=== PATIENT | male | born 1965 | race Caucasian/White ===

== ENCOUNTER 2023-02-07 16:26 | Inpatient (IN) | payer MEDICAID ==
[~2023-02-07] VITALS: Ht 167.6 cm; Wt 76.2 kg
[2023-02-07] MEDS ORDERED: ACETAMINOPHEN 650 MG/SUPP.RECT RC ONE ×2 (16:58→17:00)
[2023-02-07] MEDS ORDERED: PIPERACILLIN /TAZOBACTAM 3.375 G in IV D5W 50 ML IV ONE (17:00)
[2023-02-07] MEDS ORDERED: IV LR 1000 ML 1,000 ML IV ONE ×2 (17:00)
[2023-02-07 17:18] LABS: BASOPHILS % (AUTO) 0.1 % (0.0-2.0); HEMATOCRIT 56 % (39-51); LYMPHOCYTES # (AUTO) 0.9 K/uL (0.8-4.8); LYMPHOCYTES % (AUTO) 5.8 % (20.0-44.0); MEAN CORPUSCULAR HEMOGLOBIN 32 PG (26.0-33.0); MEAN CORPUSCULAR HGB CONC 34 g/dl (31.0-36.0); MEAN CORPUSCULAR VOLUME 94 fL (80-96); NEUTROPHILS # (AUTO) 11.8 K/uL (1.8-8.9); NEUTROPHILS % (AUTO) 75.1 % (43.0-81.0); PLATELET COUNT (AUTO) 144 K/uL (150-450); RED BLOOD CELL COUNT(AUTO) 5.96 MIL/uL (4.5-6.0); RED CELL DISTRIBUTION WIDTH 13.7 % (11.5-15.0); WHITE BLOOD COUNT (AUTO) 15.7 K/uL (4.3-11.0)
[2023-02-07 17:37] LABS: CALCIUM, SERUM 8.9 mg/dL (8.5-10.1); CARBON DIOXIDE 19 mmol/L (21-32); CHLORIDE 114 mmol/L (98-107); CREATININE 4.6 mg/dL (0.6-1.3); GLUCOSE 140 mg/dL (74-106); POTASSIUM 4.2 mmol/L (3.5-5.1); SODIUM SERUM 155 mmol/L (136-145)
[2023-02-07 17:38] LABS: UREA NITROGEN, BLOOD 86 mg/dL (7-18)
[2023-02-07 17:43] LABS: ALANINE AMINOTRANSFERASE 130 U/L (12-78); ALBUMIN 4.1 g/dL (3.4-5.0); ALKALINE PHOSPHATASE 58 U/L (46-116); ASPARTATE AMINOTRANSFERASE 424 U/L (15-37); BILIRUBIN,DIRECT 0.3 mg/dL (0.0-0.2); BILIRUBIN,TOTAL 1.3 mg/dL (0.2-1.0); TOTAL PROTEIN, SERUM 8.5 g/dL (6.4-8.2)
[2023-02-07 17:45] LABS: INR 1.19 (0.91-1.10); PARTIAL THROMBOPLASTIN TIME 31.3 SEC (24.3-34.3); PROTHROMBIN TIME 12.4 SECS (9.2-11.1)
[2023-02-07 17:49] LABS: LACTIC ACID 2.7 mmol/L (0.4-2.0)
[2023-02-07 17:59] LABS: LYMPHOCYTES % (MANUAL) 10 % (16-48); MONOCYTES % (MANUAL) 18 % (0-11.0); NEUTROPHILS % (MANUAL) 72 (42-76); PLATELET ESTIMATE DECREASED
[2023-02-07 19:57] LABS: APPEARANCE,URINE SLIGHTLY CLOUDY (CLEAR); BILIRUBIN,URINE 2+ (NEGATIVE); BLOOD, URINE 3+ Ery/uL (NEGATIVE); COLOR,URINE DARK YELLOW (YELLOW); KETONES,URINE TRACE mg/dL (NEGATIVE); LEUKOCYTE ESTERASE ,URINE NEGATIVE (NEGATIVE); NITRITE, URINE NEGATIVE (NEGATIVE); PROTEIN,URINE 2+ mg/dl (NEGATIVE); UGLUCOSE NEGATIVE (NEGATIVE)
[2023-02-07 20:36] LABS: ADD URINE CULTURE YES; BACTERIA,URINE 2+ /HPF (None Seen); SQUAMOUS EPITHELIAL CELL,UR None Seen /HPF (None Seen)
[2023-02-07 20:38] LABS: MUCUS,URINE Moderate /LPF (None Seen)
[2023-02-07 22:04] VITALS: BP 145/93; TEMP 99.1; O2SAT 98
[2023-02-07] MEDS ORDERED: ACETAMINOPHEN 325 MG TABLET PO PRN (22:30)
[2023-02-07] MEDS ORDERED: ONDANSETRON HCL/PF 4 MG/2 ML VIAL IVP PRN (22:30)
[2023-02-07] MEDS ORDERED: ENOXAPARIN SODIUM 40 MG/0.4 ML DISP.SYRIN SQ SCH (22:30)
[2023-02-07] MEDS: ENOXAPARIN SODIUM 30 MG/0.3 ML DISP.SYRIN SQ SCH (22:50)
[2023-02-07] MEDS: IV D5W 1,000 ML IV PRN (23:08)
[2023-02-08 05:12] LABS: BASOPHILS % (AUTO) 0.2 % (0.0-2.0); HEMATOCRIT 56 % (39-51); HEMOGLOBIN 18.8 g/dL (13.5-17.5); LYMPHOCYTES # (AUTO) 1.1 K/uL (0.8-4.8); LYMPHOCYTES % (AUTO) 6.4 % (20.0-44.0); MEAN CORPUSCULAR HEMOGLOBIN 32 PG (26.0-33.0); MEAN CORPUSCULAR HGB CONC 34 g/dl (31.0-36.0); MEAN CORPUSCULAR VOLUME 94 fL (80-96); MONOCYTES # (AUTO) 2.5 K/uL (0.1-1.30); MONOCYTES % (AUTO) 14.1 % (2.0-12.0); NEUTROPHILS % (AUTO) 79.3 % (43.0-81.0); PLATELET COUNT (AUTO) 111 K/uL (150-450); RED BLOOD CELL COUNT(AUTO) 5.93 MIL/uL (4.5-6.0); RED CELL DISTRIBUTION WIDTH 13.4 % (11.5-15.0); WHITE BLOOD COUNT (AUTO) 17.6 K/uL (4.3-11.0)
[2023-02-08 05:22] LABS: CALCIUM, SERUM 8.5 mg/dL (8.5-10.1); CREATININE 2.9 mg/dL (0.6-1.3); MAGNESIUM 2.8 mg/dL (1.8-2.4); PHOSPHORUS 4.8 mg/dL (2.5-4.9); POTASSIUM 3.8 mmol/L (3.5-5.1)
[2023-02-08 08:00] VITALS: BP 121/80; TEMP 98.4; O2SAT 95
[2023-02-08] MEDS ORDERED: VANCOMYCIN 1.5 GM in IV D5W 500 ML IV ONE (08:00)
[2023-02-08] MEDS: ZOSYN IVPB 3.375 G in IV D5W 50ml IV SCH ×4 (09:22→23:32)
[2023-02-08 12:00] VITALS: BP 107/72; TEMP 97.9; O2SAT 94
[2023-02-08] MEDS: PROSOURCE / PROSTAT (PYXIS) 30 ML UDC PO SCH ×2 (13:20→17:07)
[2023-02-08 16:00] VITALS: BP 107/72; TEMP 97.9; O2SAT 94
[2023-02-08] MEDS: IV D5W 1,000 ML IV PRN (17:47)
[2023-02-08 20:00] VITALS: BP 118/78; TEMP 97.6; O2SAT 95
[2023-02-08] MEDS: ENOXAPARIN SODIUM 30 MG/0.3 ML DISP.SYRIN SQ SCH (23:29)
[2023-02-09] VITALS: BP 134/69; TEMP 97.8; O2SAT 95
[2023-02-09 04:00] VITALS: BP 140/78; TEMP 97.8; O2SAT 95
[2023-02-09 06:21] LABS: CALCIUM, SERUM 8.4 mg/dL (8.5-10.1); CREATININE 1.9 mg/dL (0.6-1.3); POTASSIUM 3.8 mmol/L (3.5-5.1)
[2023-02-09] MEDS: ZOSYN IVPB 3.375 G in IV D5W 50ml IV SCH ×4 (06:21→23:29)
[2023-02-09 08:00] VITALS: BP 100/68; TEMP 97.6; O2SAT 96
[2023-02-09] MEDS: PROSOURCE / PROSTAT (PYXIS) 30 ML UDC PO SCH ×3 (08:44→17:06)
[2023-02-09 12:00] VITALS: BP 100/69; TEMP 98; O2SAT 94
[2023-02-09] MEDS: IV 1/2NS 1000 ML 1,000 ML IV SCH ×2 (14:31→23:15)
[2023-02-09] MEDS ORDERED: VANCOMYCIN 1 GM in IV D5W 250 ML IV SCH ×2 (15:00→20:00)
[2023-02-09 16:00] VITALS: BP 98/57; TEMP 98.5; O2SAT 96
[2023-02-09 20:00] VITALS: BP 108/68; TEMP 98.7
[2023-02-09] MEDS: ENOXAPARIN SODIUM 30 MG/0.3 ML DISP.SYRIN SQ SCH (21:58)
[2023-02-10] VITALS: BP 123/63; TEMP 97.3; O2SAT 95
[2023-02-10 04:00] VITALS: BP 121/74; TEMP 97.8; O2SAT 99
[2023-02-10] MEDS: ZOSYN IVPB 3.375 G in IV D5W 50ml IV SCH ×3 (06:25→17:31)
[2023-02-10 06:27] LABS: BASOPHILS % (AUTO) 0.1 % (0.0-2.0); EOSINOPHILS # (AUTO) 0.1 K/uL (0.0-0.7); EOSINOPHILS % (AUTO) 0.5 % (0.0-6.0); HEMATOCRIT 47 % (39-51); HEMOGLOBIN 15.7 g/dL (13.5-17.5); LYMPHOCYTES # (AUTO) 1.8 K/uL (0.8-4.8); LYMPHOCYTES % (AUTO) 12.3 % (20.0-44.0); MEAN CORPUSCULAR HEMOGLOBIN 32 PG (26.0-33.0); MEAN CORPUSCULAR HGB CONC 34 g/dl (31.0-36.0); MEAN CORPUSCULAR VOLUME 94 fL (80-96); MONOCYTES # (AUTO) 1.6 K/uL (0.1-1.30); MONOCYTES % (AUTO) 11.2 % (2.0-12.0); NEUTROPHILS # (AUTO) 11.1 K/uL (1.8-8.9); NEUTROPHILS % (AUTO) 75.9 % (43.0-81.0); PLATELET COUNT (AUTO) 88 K/uL (150-450); RED BLOOD CELL COUNT(AUTO) 4.98 MIL/uL (4.5-6.0); RED CELL DISTRIBUTION WIDTH 13.2 % (11.5-15.0); WHITE BLOOD COUNT (AUTO) 14.6 K/uL (4.3-11.0)
[2023-02-10 06:51] LABS: CALCIUM, SERUM 7.8 mg/dL (8.5-10.1); CREATININE 1.3 mg/dL (0.6-1.3); MAGNESIUM 2.8 mg/dL (1.8-2.4)
[2023-02-10 08:00] VITALS: BP 113/73; TEMP 98.1; O2SAT 100
[2023-02-10] MEDS ORDERED: VANCOMYCIN HCL 0.75 GM in IV D5W 250 ML IV SCH (08:00)
[2023-02-10] MEDS: PROSOURCE / PROSTAT (PYXIS) 30 ML UDC PO SCH ×3 (09:01→16:02)
[2023-02-10 12:00] VITALS: BP 105/66; TEMP 97.9; O2SAT 98
[2023-02-10 12:46] LABS: ANISOCYTOSIS 1+; BASOPHILS % (MANUAL) 0 % (0.0-2.0); EOSINOPHILS % (MANUAL) 0 % (0-4); LYMPHOCYTES % (MANUAL) 11 % (16-48); MONOCYTES % (MANUAL) 9 % (0-11.0); NEUTROPHILS % (MANUAL) 79 (42-76); PLATELET ESTIMATE DECREASED
[2023-02-10 16:00] VITALS: BP 101/65; TEMP 97.8; O2SAT 99
[2023-02-10 20:00] VITALS: BP 100/62; TEMP 97.8; O2SAT 100
[2023-02-10] MEDS: DOXYCYCLINE HYCLATE (100 MG) 100 MG TABLET PO SCH (20:47)
[2023-02-10] MEDS: ENOXAPARIN SODIUM 40 MG/0.4 ML DISP.SYRIN SQ SCH (20:48)
[2023-02-11] VITALS (7 sets, daily range): BP systolic 99–107; BP diastolic 60–70; TEMP 97.9–98.4; O2SAT 98–100
[2023-02-11 06:48] LABS: BASOPHILS % (AUTO) 0.1 % (0.0-2.0); EOSINOPHILS # (AUTO) 0.4 K/uL (0.0-0.7); EOSINOPHILS % (AUTO) 3.4 % (0.0-6.0); HEMATOCRIT 45 % (39-51); HEMOGLOBIN 15.1 g/dL (13.5-17.5); LYMPHOCYTES # (AUTO) 1.8 K/uL (0.8-4.8); LYMPHOCYTES % (AUTO) 14.3 % (20.0-44.0); MEAN CORPUSCULAR HEMOGLOBIN 32 PG (26.0-33.0); MEAN CORPUSCULAR HGB CONC 33 g/dl (31.0-36.0); MEAN CORPUSCULAR VOLUME 95 fL (80-96); MONOCYTES # (AUTO) 1.5 K/uL (0.1-1.30); MONOCYTES % (AUTO) 12.1 % (2.0-12.0); NEUTROPHILS # (AUTO) 8.9 K/uL (1.8-8.9); NEUTROPHILS % (AUTO) 70.1 % (43.0-81.0); PLATELET COUNT (AUTO) 111 K/uL (150-450); RED BLOOD CELL COUNT(AUTO) 4.77 MIL/uL (4.5-6.0); RED CELL DISTRIBUTION WIDTH 12.8 % (11.5-15.0); WHITE BLOOD COUNT (AUTO) 12.8 K/uL (4.3-11.0)
[2023-02-11 07:03] LABS: CALCIUM, SERUM 8.2 mg/dL (8.5-10.1); CREATININE 0.9 mg/dL (0.6-1.3); PHOSPHORUS 2.5 mg/dL (2.5-4.9); POTASSIUM 3.9 mmol/L (3.5-5.1)
[2023-02-11] MEDS: PROSOURCE / PROSTAT (PYXIS) 30 ML UDC PO SCH ×3 (10:36→18:48)
[2023-02-11] MEDS: DOXYCYCLINE HYCLATE (100 MG) 100 MG TABLET PO SCH ×2 (10:36→21:16)
[2023-02-11] MEDS ORDERED: NEPRO VAN 237 ML CAN PO PRN (12:30)
[2023-02-11] MEDS: ENOXAPARIN SODIUM 40 MG/0.4 ML DISP.SYRIN SQ SCH (21:16)
[2023-02-12] VITALS: BP 101/64; TEMP 98; O2SAT 100
[2023-02-12 04:00] VITALS: BP 110/60; TEMP 97.6; O2SAT 100
[2023-02-12 07:17] LABS: CREATININE 0.9 mg/dL (0.6-1.3); POTASSIUM 3.8 mmol/L (3.5-5.1)
[2023-02-12 07:26] LABS: CALCIUM, SERUM 8.7 mg/dL (8.5-10.1)
[2023-02-12 08:00] VITALS: BP 114/70; TEMP 97.9; O2SAT 98
[2023-02-12] MEDS: DOXYCYCLINE HYCLATE (100 MG) 100 MG TABLET PO SCH ×2 (08:16→20:35)
[2023-02-12] MEDS: PROSOURCE / PROSTAT (PYXIS) 30 ML UDC PO SCH ×3 (08:16→16:10)
[2023-02-12 12:00] VITALS: BP 106/67; TEMP 98.9; O2SAT 98
[2023-02-12 16:00] VITALS: BP 112/66; TEMP 98.5; O2SAT 98
[2023-02-12 20:00] VITALS: BP 110/72; TEMP 97.7; O2SAT 100
[2023-02-12] MEDS: ENOXAPARIN SODIUM 40 MG/0.4 ML DISP.SYRIN SQ SCH (20:35)
[2023-02-13] VITALS (7 sets, daily range): BP systolic 111–151; BP diastolic 71–86; TEMP 97.2–98.3; O2SAT 97–100
[2023-02-13 07:41] LABS: BASOPHILS % (AUTO) 0.2 % (0.0-2.0); EOSINOPHILS % (AUTO) 5.3 % (0.0-6.0); HEMATOCRIT 42 % (39-51); HEMOGLOBIN 14.2 g/dL (13.5-17.5); LYMPHOCYTES % (AUTO) 10.9 % (20.0-44.0); MEAN CORPUSCULAR HEMOGLOBIN 32 PG (26.0-33.0); MEAN CORPUSCULAR HGB CONC 34 g/dl (31.0-36.0); MEAN CORPUSCULAR VOLUME 94 fL (80-96); MONOCYTES # (AUTO) 2.5 K/uL (0.1-1.30); MONOCYTES % (AUTO) 13.5 % (2.0-12.0); NEUTROPHILS # (AUTO) 12.9 K/uL (1.8-8.9); NEUTROPHILS % (AUTO) 70.1 % (43.0-81.0); PLATELET COUNT (AUTO) 179 K/uL (150-450); RED BLOOD CELL COUNT(AUTO) 4.48 MIL/uL (4.5-6.0); RED CELL DISTRIBUTION WIDTH 12.7 % (11.5-15.0); WHITE BLOOD COUNT (AUTO) 18.4 K/uL (4.3-11.0)
[2023-02-13 07:56] LABS: ALBUMIN 2.4 g/dL (3.4-5.0); BILIRUBIN,DIRECT 0.1 mg/dL (0.0-0.2); BILIRUBIN,TOTAL 0.6 mg/dL (0.2-1.0); CALCIUM, SERUM 8.4 mg/dL (8.5-10.1); CREATININE 0.8 mg/dL (0.6-1.3); MAGNESIUM 2.3 mg/dL (1.8-2.4); POTASSIUM 3.8 mmol/L (3.5-5.1); TOTAL PROTEIN, SERUM 6.3 g/dL (6.4-8.2)
[2023-02-13] MEDS: PROSOURCE / PROSTAT (PYXIS) 30 ML UDC PO SCH ×3 (08:42→16:18)
[2023-02-13] MEDS: DOXYCYCLINE HYCLATE (100 MG) 100 MG TABLET PO SCH (08:42)
[2023-02-13] MEDS: CEFEPIME 2 GM in IV D5W 100 ML IV SCH (16:36)
[2023-02-13] MEDS ORDERED: VANCOMYCIN 1 GM in IV D5W 250ml IV ONE (17:00)
[2023-02-13] MEDS: ENOXAPARIN SODIUM 40 MG/0.4 ML DISP.SYRIN SQ SCH (21:00)
[2023-02-14] VITALS (7 sets, daily range): BP systolic 108–125; BP diastolic 68–73; TEMP 98.2–98.9; O2SAT 94–100
[2023-02-14] MEDS: VANCOMYCIN HCL 0.75 GM in IV D5W 250 ML IV SCH ×3 (00:08→16:48)
[2023-02-14] MEDS: CEFEPIME 2 GM in IV D5W 100 ML IV SCH ×2 (04:49→16:01)
[2023-02-14 08:22] LABS: CALCIUM, SERUM 8.1 mg/dL (8.5-10.1); CREATININE 0.8 mg/dL (0.6-1.3); POTASSIUM 3.4 mmol/L (3.5-5.1)
[2023-02-14] MEDS: PROSOURCE / PROSTAT (PYXIS) 30 ML UDC PO SCH ×3 (09:03→16:48)
[2023-02-14] MEDS: APIXABAN 5 MG TABLET PO SCH ×2 (12:20→16:54)
[2023-02-14] MEDS ORDERED: POTASSIUM CHLORIDE 20 MEQ TAB.PRT.SR PO SCH (13:30)
[2023-02-15] VITALS: BP 114/69; TEMP 99.3; O2SAT 96
[2023-02-15 04:00] VITALS: BP 117/70; TEMP 98.9; O2SAT 99
[2023-02-15] MEDS: CEFEPIME 2 GM in IV D5W 100 ML IV SCH ×2 (04:08→16:02)
[2023-02-15] MEDS: VANCOMYCIN HCL 0.75 GM in IV D5W 250 ML IV SCH ×2 (05:12→16:33)
[2023-02-15 07:29] LABS: BASOPHILS % (AUTO) 0.2 % (0.0-2.0); EOSINOPHILS # (AUTO) 0.6 K/uL (0.0-0.7); EOSINOPHILS % (AUTO) 3.7 % (0.0-6.0); HEMATOCRIT 38 % (39-51); HEMOGLOBIN 13.1 g/dL (13.5-17.5); LYMPHOCYTES # (AUTO) 1.5 K/uL (0.8-4.8); LYMPHOCYTES % (AUTO) 8.9 % (20.0-44.0); MEAN CORPUSCULAR HEMOGLOBIN 32 PG (26.0-33.0); MEAN CORPUSCULAR HGB CONC 34 g/dl (31.0-36.0); MEAN CORPUSCULAR VOLUME 92 fL (80-96); MONOCYTES # (AUTO) 2.2 K/uL (0.1-1.30); MONOCYTES % (AUTO) 12.8 % (2.0-12.0); NEUTROPHILS # (AUTO) 12.5 K/uL (1.8-8.9); NEUTROPHILS % (AUTO) 74.4 % (43.0-81.0); PLATELET COUNT (AUTO) 227 K/uL (150-450); RED BLOOD CELL COUNT(AUTO) 4.15 MIL/uL (4.5-6.0); RED CELL DISTRIBUTION WIDTH 12.9 % (11.5-15.0); WHITE BLOOD COUNT (AUTO) 16.8 K/uL (4.3-11.0)
[2023-02-15 07:55] LABS: CALCIUM, SERUM 8.4 mg/dL (8.5-10.1); CREATININE 0.8 mg/dL (0.6-1.3); MAGNESIUM 2.4 mg/dL (1.8-2.4); PHOSPHORUS 2.9 mg/dL (2.5-4.9); POTASSIUM 3.8 mmol/L (3.5-5.1)
[2023-02-15 08:00] VITALS: BP 120/71; TEMP 98; O2SAT 100
[2023-02-15] MEDS: PROSOURCE / PROSTAT (PYXIS) 30 ML UDC PO SCH ×3 (08:04→16:00)
[2023-02-15] MEDS: APIXABAN 5 MG TABLET PO SCH ×2 (08:05→16:05)
[2023-02-15 12:00] VITALS: BP 125/75; TEMP 98.7; O2SAT 100
[2023-02-15] MEDS: CADEXOMER IODINE 40 GM TUBE TP SCH (15:31)
[2023-02-15 16:00] VITALS: BP 105/62; TEMP 98.8; O2SAT 100
[2023-02-15 20:00] VITALS: BP 108/63; TEMP 98.7; O2SAT 96
[2023-02-15] MEDS ORDERED: IV NS 0.9% 250 ML IV ONE (22:37)
[2023-02-15] MEDS ORDERED: IOHEXOL-300 100 ML VIAL IV ONE (22:37)
[2023-02-15] MEDS ORDERED: CT SWABBABLE VALVE TRANS SET 1 EA INFUS.SET MC ONE (22:37)
[2023-02-16] VITALS: BP 105/60; TEMP 98.6; O2SAT 96
[2023-02-16 04:00] VITALS: BP 101/65; TEMP 98.4; O2SAT 96
[2023-02-16] MEDS: CEFEPIME 2 GM in IV D5W 100 ML IV SCH ×2 (04:34→16:12)
[2023-02-16 05:57] LABS: BASOPHILS % (AUTO) 0.2 % (0.0-2.0); EOSINOPHILS # (AUTO) 0.5 K/uL (0.0-0.7); EOSINOPHILS % (AUTO) 3.1 % (0.0-6.0); HEMATOCRIT 37 % (39-51); HEMOGLOBIN 12.8 g/dL (13.5-17.5); LYMPHOCYTES # (AUTO) 1.5 K/uL (0.8-4.8); LYMPHOCYTES % (AUTO) 10.4 % (20.0-44.0); MEAN CORPUSCULAR HEMOGLOBIN 32 PG (26.0-33.0); MEAN CORPUSCULAR HGB CONC 34 g/dl (31.0-36.0); MEAN CORPUSCULAR VOLUME 93 fL (80-96); MONOCYTES # (AUTO) 1.8 K/uL (0.1-1.30); MONOCYTES % (AUTO) 11.9 % (2.0-12.0); NEUTROPHILS # (AUTO) 11.1 K/uL (1.8-8.9); NEUTROPHILS % (AUTO) 74.4 % (43.0-81.0); PLATELET COUNT (AUTO) 231 K/uL (150-450); RED BLOOD CELL COUNT(AUTO) 3.99 MIL/uL (4.5-6.0); RED CELL DISTRIBUTION WIDTH 13.2 % (11.5-15.0); WHITE BLOOD COUNT (AUTO) 14.9 K/uL (4.3-11.0)
[2023-02-16 06:14] LABS: CALCIUM, SERUM 8.7 mg/dL (8.5-10.1); CREATININE 0.7 mg/dL (0.6-1.3); MAGNESIUM 2.4 mg/dL (1.8-2.4); POTASSIUM 4.2 mmol/L (3.5-5.1)
[2023-02-16] MEDS: VANCOMYCIN HCL 0.75 GM in IV D5W 250 ML IV SCH ×2 (06:32→17:23)
[2023-02-16 08:00] VITALS: BP 109/69; TEMP 98.5; O2SAT 99
[2023-02-16] MEDS: CADEXOMER IODINE 40 GM TUBE TP SCH (09:00)
[2023-02-16] MEDS ORDERED: IOHEXOL-300 100 ML VIAL IV ONE (09:45)
[2023-02-16] MEDS: PROSOURCE / PROSTAT (PYXIS) 30 ML UDC PO SCH ×3 (10:19→16:16)
[2023-02-16] MEDS: APIXABAN 5 MG TABLET PO SCH ×2 (10:19→16:16)
[2023-02-16 12:00] VITALS: BP 111/69; TEMP 98.5; O2SAT 99
[2023-02-16 16:00] VITALS: BP 117/70; TEMP 98.7; O2SAT 97
[2023-02-16 20:00] VITALS: BP 113/70; TEMP 99.1; O2SAT 95
[2023-02-17] VITALS: BP 123/80; TEMP 98; O2SAT 98
[2023-02-17 04:00] VITALS: BP 107/64; TEMP 99.5; O2SAT 96
[2023-02-17] MEDS: CEFEPIME 2 GM in IV D5W 100 ML IV SCH (04:06)
[2023-02-17] MEDS: VANCOMYCIN HCL 0.75 GM in IV D5W 250 ML IV SCH (04:48)
[2023-02-17 08:00] VITALS: BP 117/68; TEMP 98.3; O2SAT 96
[2023-02-17 08:04] LABS: CALCIUM, SERUM 8.4 mg/dL (8.5-10.1); CREATININE 0.7 mg/dL (0.6-1.3); MAGNESIUM 2.3 mg/dL (1.8-2.4); PHOSPHORUS 3.2 mg/dL (2.5-4.9); POTASSIUM 3.4 mmol/L (3.5-5.1)
[2023-02-17 08:09] LABS: BASOPHILS # (AUTO) 0.1 K/uL (0.0-0.2); BASOPHILS % (AUTO) 0.4 % (0.0-2.0); EOSINOPHILS # (AUTO) 0.5 K/uL (0.0-0.7); EOSINOPHILS % (AUTO) 3.3 % (0.0-6.0); HEMATOCRIT 35 % (39-51); HEMOGLOBIN 12.1 g/dL (13.5-17.5); LYMPHOCYTES # (AUTO) 1.4 K/uL (0.8-4.8); LYMPHOCYTES % (AUTO) 9.8 % (20.0-44.0); MEAN CORPUSCULAR HEMOGLOBIN 32 PG (26.0-33.0); MEAN CORPUSCULAR HGB CONC 35 g/dl (31.0-36.0); MEAN CORPUSCULAR VOLUME 92 fL (80-96); MONOCYTES # (AUTO) 1.5 K/uL (0.1-1.30); MONOCYTES % (AUTO) 10.5 % (2.0-12.0); PLATELET COUNT (AUTO) 264 K/uL (150-450); RED BLOOD CELL COUNT(AUTO) 3.79 MIL/uL (4.5-6.0); WHITE BLOOD COUNT (AUTO) 14.4 K/uL (4.3-11.0)
[2023-02-17] MEDS: PROSOURCE / PROSTAT (PYXIS) 30 ML UDC PO SCH ×2 (08:14→13:29)
[2023-02-17] MEDS: CADEXOMER IODINE 40 GM TUBE TP SCH (08:14)
[2023-02-17] MEDS: APIXABAN 5 MG TABLET PO SCH (08:18)
[2023-02-17] MEDS ORDERED: POTASSIUM CHLORIDE 20 MEQ TAB.PRT.SR PO ONE (11:00)
[2023-02-17 12:05] VITALS: BP 115/64; TEMP 98.2; O2SAT 97
[2023-02-17 16:00] VITALS: BP 116/69; TEMP 98.2; O2SAT 97
== END 2023-02-17 16:52 | DRG 720 ==
LOC: ER 16:28 → TELE1 21:03
PROVIDERS: ADMIT Nurse Practitioner Acute Care; ATTEND Nurse Practitioner Family
DX: A41.89 Other specified sepsis (principal); N17.0 Acute kidney failure with tubular necrosis; G93.41 Metabolic encephalopathy; I21.A1 Myocardial infarction type 2; L89.126 Pressure-induced deep tissue damage of left upper back; I82.C12 Acute embolism and thrombosis of left internal jugular vein; E87.0 Hyperosmolality and hypernatremia; L89.226 Pressure-induced deep tissue damage of left hip; L89.896 Pressure-induced deep tissue damage of other site; E86.0 Dehydration; H60.12 Cellulitis of left external ear; L03.211 Cellulitis of face; K76.1 Chronic passive congestion of liver; L03.114 Cellulitis of left upper limb; M62.82 Rhabdomyolysis; R65.20 Severe sepsis without septic shock; R74.01 Elevation of levels of liver transaminase levels; L89.810 Pressure ulcer of head, unstageable; S41.112A Laceration without foreign body of left upper arm, initial encounter; X58.XXXA Exposure to other specified factors, initial encounter; Y93.9 Activity, unspecified; Y92.009 Unspecified place in unspecified non-institutional (private) residence as the place of occurrence of the external cause; I50.9 Heart failure, unspecified
CPT/HCPCS: 36415; 70450-TC; 70486-TC; 70487-TC; 71045-TC; 71250-TC; 72125-TC; 76770-TC; 80048-TC; 80061-TC; 80076-TC; 80202-TC; 81001; 82550-TC; 82553; 82962-TC; 83605-TC; 83735-TC; 84100-TC; 84484-TC; 85025-TC; 85730-TC; 87040-TC; 87086-TC; 93307-TC; 93971-TC; 97112-TC; 97530-TC; 97535-TC; A4223; A4349; A6403; G0378; J0692; J1650; J2543; J3370; J3490; J7030; J7050; J7060; J7070; J7120; Q9967